=== PATIENT | female | born 1955 | race Caucasian/White ===

== ENCOUNTER 2018-09-04 09:50 | Inpatient (IN) | payer OTHER ==
[~2018-09-04] VITALS: Ht 165.1 cm; Wt 54.0 kg
[~2018-09-04 09:50] MED LIST: ALBUAER3 IN; CEPH-37 PO; PRED-188 PO
[2018-09-04] MEDS ORDERED: MECLIZINE HCL 25 MG TAB PO ONE ×2 (10:15→16:30)
[2018-09-04] MEDS ORDERED: SODIUM CHLORIDE 0.9% 1,000 ML IV ONE ×2 (11:29→18:45)
[2018-09-04] MEDS ORDERED: FUROSEMIDE 20 MG/2 ML VIAL IV ONE ×2 (11:30→12:00)
[2018-09-04] MEDS ORDERED: LORazepam 2MG/ML-1ML VIAL IV ONE ×2 (11:30→12:00)
[2018-09-04 12:23] LABS: Basophils # (auto) 0 uL; Basophils % (auto) 0.5 % (0.0-2.0); Eosinophils # (auto) 0 uL; Eosinophils % (auto) 0.7 % (0.0-7.0); Hematocrit 42.9 % (36.0-46.0); Lymphocytes # (auto) 1.1 uL; Lymphocytes % (auto) 24.4 % (10.0-50.0); Mean Corpuscular Hemoglobin 31.8 pg (28.0-32.0); Mean Corpuscular Hgb Conc. 34.8 g/dL (32.0-36.0); Mean Corpuscular Volume 91.1 fL (80.0-100.0); Monocytes # (auto) 0.2 uL; Monocytes % (auto) 5.2 % (0.0-12.0); Neutrophils # (auto) 3.2 uL; Neutrophils % (auto) 69.2 % (37.0-80.0); Nucleated Red Blood Cells % 0.1 %; Platelet Count (auto) 180 10^3/uL (140-450); Red Blood Cells 4.71 10^6/uL (4.0-5.20); Red Cell Distribution Width 13.8 % (11.8-14.3); White Blood Cell 4.6 10^3/uL (4.4-10.8)
[2018-09-04 12:30] LABS: Albumin 3.7 g/dL (3.4-5.0); Calcium 9.6 mg/dL (8.5-10.1); Potassium 4.3 mmol/L (3.5-5.1)
[2018-09-04 12:36] LABS: BUN/Creatinine Ratio 29.6; Bilirubin, Total 0.4 mg/dL (0.2-1.0); Total Protein 7.2 g/dL (6.4-8.2)
[2018-09-04 13:22] LABS: Urine WBC None Seen /hpf (0 - 5)
[2018-09-04 13:42] LABS: Urine Amorphous Crystal MANY /hpf (None Seen); Urine Bacteria NONE SEEN /hpf (None Seen); Urine Blood Negative /uL (Negative); Urine Specific Gravity 1.014 (1.001-1.035)
[2018-09-04] MEDS ORDERED: ONDANSETRON HCL 4 MG/2 ML VIAL ONE (18:03)
[2018-09-04] MEDS ORDERED: ONDANSETRON HCL 4 MG/2 ML VIAL IV ONE (18:15)
[2018-09-04] MEDS ORDERED: MORPHINE SULFATE 4 MG/ML SYR/VIAL IV PRN ×2 (18:45)
[2018-09-04] MEDS ORDERED: TEMAZEPAM 15 MG CAP PO PRN (18:45)
[2018-09-04] MEDS ORDERED: NITROGLYCERIN 0.4 MG SL TAB SL PRN (18:45)
[2018-09-04] MEDS ORDERED: LORazepam 0.5 MG TAB PO PRN (18:45)
[2018-09-04] MEDS ORDERED: LACTULOSE 20Gm/30ML SOLN PO PRN (18:45)
[2018-09-04] MEDS ORDERED: HYDROcodone-ACET 5/325MG TAB PO PRN (18:45)
[2018-09-04] MEDS ORDERED: PROMETHAZINE HCL 25 MG/ML 1ML IV PRN (18:45)
[2018-09-04] MEDS ORDERED: ACETAMINOPHEN 500 MG TAB PO PRN (18:45)
[2018-09-04] MEDS ORDERED: ALBUTEROL SULF 2.5 MG/0.5ML(0.5%) NEB SOLN NEB PRN (18:45)
[2018-09-04 19:25] LABS: Alcohol, Urine < 3.0 mg/dL (0-5); Amphetamine Screen, Urine NEGATIVE (NEGATIVE); Barbiturate Scree,Urine NEGATIVE (NEGATIVE); Benzodiazephine Screen, Urine NEGATIVE (NEGATIVE); Cannabinoid Screen, Urine NEGATIVE (NEGATIVE); Cocaine Screen, Urine NEGATIVE (NEGATIVE); Opiate Scree,Urine NEGATIVE (NEGATIVE); Phencyclidine Screen, Urine NEGATIVE (NEGATIVE)
--- NOTE | 2018-09-04 21:00 | NUR ---
PT SEEN IN ER ON RA, SPO2 96%, BS CLEAR AND DIMINISHED. PT DENIES SOB AT THIS TIME. PT IS AWARE OF PRN NEB TX. NO RESP DISTRESS NOTED. PRN NEB TX NOT GIVEN AT THIS TIME.
[2018-09-04 21:30] VITALS: BP 121/63
[2018-09-04 21:45] VITALS: BP 121/63
[2018-09-04 21:56] VITALS: BP 95/59
[2018-09-04] MEDS: MECLIZINE HCL 25 MG TAB PO SCH (22:00)
--- NOTE | 2018-09-04 22:00 | NUR ---
Telemetry admit from ER PRABHA OGDEN admitted to Telemetry unit after SBAR received. Patient oriented to Marshal sanchez RN, unit, room 289, bed A, and unit policies regarding patient care and visiting hours. Patient now on continuous telemetry monitoring, tele box #[id number] and telemetry reading on arrival to unit is SR 73. Patient VS taken, weighed by bedscale and encouraged to call if they need something. All questions and concerns addressed, patient verbalized understanding.
--- NOTE | 2018-09-04 22:30 | NUR ---
Patient refused to take Antivert medication. Educated patient about medication, but patient stated that she no longer feels dizzy and does not need to take it.
[2018-09-04] MEDS: ATORVASTATIN 20 MG TAB PO SCH (22:48)
[2018-09-04] MEDS: SODIUM CHLORIDE 0.9% 1,000 ML IV SCH (22:48)
[2018-09-05] VITALS (7 sets, daily range): BP systolic 98–132; BP diastolic 59–74
[2018-09-05] MEDS: MECLIZINE HCL 25 MG TAB PO SCH ×3 (06:15→22:00)
[2018-09-05] MEDS: SODIUM CHLORIDE 0.9% 1,000 ML IV SCH ×2 (06:15→11:45)
[2018-09-05 06:53] LABS: Cholesterol 122 mg/dL (< 200)
[2018-09-05 06:56] LABS: HDL Cholesterol 54 mg/dL (40-59); LDL Cholesterol 65 mg/dL (< 100); Triglycerides 58 mg/dL (< 150)
[2018-09-05] MEDS: PANTOPRAZOLE 40 MG TAB PO SCH (09:39)
[2018-09-05] MEDS: ASPirin 81 mg TAB PO SCH (09:39)
[2018-09-05] MEDS: ENOXAPARIN SOD 40 MG/0.4 ML SYRINGE SC SCH (09:40)
--- NOTE | 2018-09-05 14:25 | NUR ---
Respiratory note: ASSESSED PT FOR PRN MEDNEB TX. HR 65, RR 16, POX 93% ON ROOM AIR. BREATH SOUNDS CLEAR BILATERALLY. NO SOB OR RESPIRATORY DISTRESS NOTED. NO MEDNEB TX INDICATED AT THIS TIME. FAMILY AT BEDSIDE. PT ADVISED TO CALL RT IF FEELING RESP DISTRESS.
--- NOTE | 2018-09-05 17:00 | NUR ---
B/P 198/89. Large number of visitors at bedside. Pt does appear to be somewhat anxious at times. Pt denies pain or discomfort. Pt states that she does have some dizziness at times.
--- NOTE | 2018-09-05 18:00 | NUR ---
B/P 142/82. Pt appears to be much calmer. Pt denies headache. No c/o visual disturbances. Pt c/o nausea. Pt resting quietly at this time.
--- NOTE | 2018-09-05 20:50 | NUR ---
Respiratory note: PT ASSESSED FOR PRN MED NEB TX. HR 60, RR 16, SPO2 96% ON R/A, BS CLEAR T/O. NO SIGNS OF ANY RESPIRATORY DISTRESS NOTED. ADVISED PT TO PLEASE CALL IF NEEDED.
[2018-09-05] MEDS: ATORVASTATIN 20 MG TAB PO SCH (22:00)
[2018-09-06 05:00] VITALS: BP_SYST 110; BP_SYST 114; BP_SYST 99; BP_DIAS 57; BP_DIAS 69; BP_DIAS 71
[2018-09-06] MEDS: MECLIZINE HCL 25 MG TAB PO SCH ×2 (06:10→13:11)
--- NOTE | 2018-09-06 07:15 | NUR ---
Opening Shift Note Received report from Elodia RESENDEZ. Assumed care of patient, asleep. No S/S of distress/SOB or pain. Placed call light within reach, kept 2 side rails up, will continue to monitor for changes Q1hr and PRN.
[2018-09-06 08:00] VITALS: BP 160/80
[2018-09-06 09:00] VITALS: BP 121/67
--- NOTE | 2018-09-06 09:20 | NUR ---
PATIENT ASSISTED TO MRI BY WHEELCHAIR.
[2018-09-06] MEDS: ASPirin 81 mg TAB PO SCH (09:48)
[2018-09-06] MEDS: ENOXAPARIN SOD 40 MG/0.4 ML SYRINGE SC SCH (09:49)
[2018-09-06] MEDS: PANTOPRAZOLE 40 MG TAB PO SCH (09:49)
--- NOTE | 2018-09-06 10:00 | NUR ---
MRI DONE, PATIENT IS BACK TO ROOM ASSISTED BY NOELLE
[2018-09-06 11:00] LABS: Folate (Folic Acid) > 24.00 ng/mL (5.38-24)
--- NOTE | 2018-09-06 12:02 | NUR ---
Respiratory note: WENT TO ASSESS PATIENT FOR PRN TX, PATIENT IS NOT IN THE ROOM. WILL TRY AGAIN.
[2018-09-06 13:00] VITALS: BP 101/57
--- NOTE | 2018-09-06 13:39 | NUR ---
PATIENT SEEN WALKING WITH PHYSICAL THERAPIST AT [facility].
--- NOTE | 2018-09-06 14:15 | NUR ---
Dr. Henry at bedside. [facility] for [facility] safety eval. Said to discharge the patient, they will resume service 24-48 hours post discharge.
--- NOTE | 2018-09-06 14:38 | NUR ---
MARCIE ROY SAID THAT SHE WILL PROCESS THE AUTH FIRST AND INFORM CUSTOM HARVESTER HERE WHAT AGENCY THE PATIENT WILL HAVE FOR HOME HEALTH. WILL WAIT FOR UPDATE. PATIENT MADE AWARE AND VERBALIZED UNDERSTANDING.
--- NOTE | 2018-09-06 15:26 | NUR ---
PATIENT HAS BEEN ACCEPTED WITH [email or web address] [phone]. START OF CARE WILL BE 24 TO 48 HOURS AFTER DISCHARGE. AUTH HAS BEEN REQUESTED FROM [facility].
[2018-09-06 17:00] VITALS: BP 102/62
[2018-09-06 17:31] VITALS: BP 102/62
--- NOTE | 2018-09-06 19:11 | NUR ---
Discharge instructions given as ordered. Encourage to follow up with PMD as instructed. All questions and concerns addressed. Patient verbalized understanding. IV removed with catheter intact, pressure dressing applied. Telemetry unit returned to [facility]. Patient taken to vehicle via wheelchair with all personal belongings, accompanied by staff and family member. No distress noted at time of departure.
== END 2018-09-06 19:21 | disposition home health service (06) | DRG 149 ==
LOC: ER 09:50 → EDBD 09:50 → TELE 18:42 → TELE-WESTW 21:30
PROVIDERS: ADMIT Internal Medicine; ATTEND Hospitalist
DX: H81.10 Benign paroxysmal vertigo, unspecified ear (principal); R00.1 Bradycardia, unspecified; J44.9 Chronic obstructive pulmonary disease, unspecified; R26.2 Difficulty in walking, not elsewhere classified; Z82.49 Family history of ischemic heart disease and other diseases of the circulatory system; Z80.0 Family history of malignant neoplasm of digestive organs; Z98.82 Breast implant status; Z83.3 Family history of diabetes mellitus; Z88.5 Allergy status to narcotic agent
CPT/HCPCS: 36415; 70450; 70551; 71045; 80053; 80061; 80307; 81001; 82550; 82607; 82746; 83735; 84443; 85025; 85652; 93005; 93306; 93886; 94761; 96361; 96374; 96375; G0378; J2405